=== PATIENT | male | born 1970 | race Caucasian/White ===

== ENCOUNTER 2018-07-01 09:45 | Emergency (ER) | payer MEDICAID ==
[2018-07-01] MEDS ORDERED: OLANZapine DISINTEGR 5 MG TAB PO ONE (10:29)
[2018-07-01 10:31] LABS: PLATELET COUNT 381 10^3/uL (150-400)
[2018-07-01] MEDS ORDERED: diphenhydrAMINE 25 MG CAP PO ONE (10:32)
--- NOTE | 2018-07-01 10:48 | EDPHY ---
General - History Smoking Status: Current every day smoker Time Seen by Provider: 07/01/18 10:00 Narrative: CLINICAL IMPRESSION: Delusions, paranoia ASSESSMENT/PLAN: A 48-year-old homeless male presents to the emergency department on an M1 hold by [employer] police after displaying paranoid behavior and delusions stating that someone was out to kill him and that people are apparently telling him to leave town. Patient denies SI/HI. Patient is paranoid on arrival, agitated, pacing the halls, and required 4 point restraints and both oral and IM Zyprexa as well as oral Ativan. Patient eventually calmed and restraints were removed. Patient was admitted to [facility] in May of 2018. He was medically cleared and is awaiting formal evaluation by TLC at time of sign-out to Dr. Cox at 5:00 p.m.. DIFFERENTIAL DX: Differential diagnosis including but not limited to hypoglycemia, infectious process, electrolyte abnormality, head injury and intoxicants, illicit drug intoxication, acute psychosis, acute delusional state. ED PROCEDURES: See lab and/or imaging results below ED COURSE: 10:40 a.m.. After my assessment, patient is anxious, agitated and pacing the halls. He will be given oral Zyprexa, lab results pending, TLC evaluation dependent on patient's lab evaluation and sobriety state. 10:50 a.m.: Patient agreed to take oral Zyprexa and then escalated to the point of needing restraints. I ordered 5 additional mg IM Zyprexa. 12:15 p.m.: ED RN informs me patient is still in 4 point restraints. Will add Ativan. 3:20 p.m.: Patient out of restraints, communicating with the ED RN, less agitated, medically cleared and awaiting eval. Will call TLC team. CHIEF COMPLAINT: M1 hold for psychosis HPI: 48-year-old male known to this emergency department with a past medical history of mental health illness and homelessness as well as drug abuse presents to the emergency department on an M1 hold by [employer] police after he apparently walked into the police department today stating that someone was going to kill him. Patient admits to doing methamphetamine last night and taking heroin today. He also reports abusing alcohol this morning and last night. He was admitted to [facility] in May of last year. Patient reports he is being told by people on the streets that he should get out of town because someone in [place] is after him. He states he is going to be shot today at. He is not reporting any suicidal or homicidal ideations. He will not tell me if he is hearing things or seeing people here. He denies IV drug abuse and states he "snorted methamphetamine". When asked if he is currently taking medications for mental health illness he will not answer. He is asking for a phone so he can call his parents. He is pacing the hallways and appears very anxious. PAST MEDICAL HISTORY: Past history of paranoia and delusions, abuses drugs See nurse/triage notes for additional history if applicable Pertinent Past Surgical History: Unable to obtain Family History: Unable to obtain Social History: Homeless, abuses alcohol, methamphetamine, heroin REVIEW OF SYSTEMS: All other systems negative Constitutional: No fever, appetite change. Eyes: No discharge, vision change ENT: No sore throat, congestion, ear pain. Cardiovascular: No chest pain, no palpitations. Respiratory: No cough, no shortness of breath. Gastrointestinal: No abdominal pain, no vomiting, diarrhea. Genitourinary: No hematuria, dysuria, flank pain Musculoskeletal: No back pain, joint swelling, joint pain, myalgias. Skin: No rashes, color change. PHYSICAL EXAM: General Appearance: Alert, oriented, appropriate, anxious appearing, pacing the hallways in the psych suite, appears paranoid, very slow to respond to questions, disheveled, non-toxic appearing, VSS, no hypoxia. HEENT: Oropharynx clear is no erythema or exudates, no tonsillar hypertrophy or asymmetry. Eyes: PERRLA, no acute vision change, nystagmus, swelling, discharge, pain or photosensitivity. Conjunctiva pink, no pallor or injection Neck: Supple, nontender, no lymphadenopathy, no midline pain, FROM, no meningismus. Respiratory: There are no retractions, lungs are clear to auscultation. Cardiac: Regular rate and rhythm, no murmurs or gallops. Gastrointestinal: Abdomen is soft, nontender, bowel sounds normal, no masses/ hernia, no rigidity, guarding or focal peritoneal findings. Neurological: Alert and oriented x 3 Skin: Warm, dry, no rashes, no nodules on palpation. No obvious signs of recent IV drug abuse, old scarring noted to bilateral forearms from cutting behavior Musculoskeletal: Extremities are symmetrical, full range of motion, no tenderness, deformity, swelling, or erythema. Psychiatric: Patient is oriented X 3, anxious, slightly agitated, pacing the room, asking for a telephone and stating that he does not want to stay here. MEDICAL DECISION MAKING: Patient was seen independently. Secondary supervising physician at time of evaluation was Dr. Costa, Dr. Cox. Diagnosis: Acute paranoia, delusional behavior. New, requires workup Summary: See Assessment and Plan for summary of ED visit Clinical lab tests: ordered / reviewed. Discussed patient with another provider: Dr Cox Patient Progress: Stable at time of signout. (Silver Mclean) Medical Decision Making: Care assumed at 2:[address] Costa with plan for psychiatric evaluation. 1830: Given additional oral Ativan and Zyprexa for increasing agitation after psychiatric evaluation is completed. 2300: signed out to Chuck. (Juan Cox) [address] Cox pending placement. 0700 patient signed out to Dr. Leblanc pending placement. I had no issues care for this patient during my shift. (Robert Woods) Discussion: 1200: Mental health has evaluated patient and recommends breaking the M1 hold. Patient has contracted for safety and will be discharged with outpatient resources. Return precautions discussed. (Gordon Leblanc) - Objective Vital Signs: Initial Vital Signs Temperature (C) 36.5 C 07/01/18 10:00 Heart Rate 95 07/01/18 10:00 Respiratory Rate 18 07/01/18 10:00 Blood Pressure 134/99 H 07/01/18 10:00 O2 Sat (%) 93 07/01/18 10:00 O2 Delivery Mode Room Air Allergies/Adverse Reactions: No Known Allergies Allergy (Unverified 07/01/18 09:53) Home Medications: Medication Instructions Recorded NK [No Known Home Meds] 07/01/18 Laboratory Results: Laboratory Results 07/01/18 10:00 07/01/18 10:00 Medications Given: Discontinued Medications Lorazepam (Ativan) 1 mg PO ONCE ONE Stop: 07/01/18 12:16 Last Admin: 07/01/18 12:38 Dose: 1 mg Lorazepam (Ativan) 1 mg PO EDNOW ONE Stop: 07/01/18 17:54 Last Admin: 07/01/18 18:24 Dose: 1 mg Olanzapine (Zyprexa Zydis) 5 mg PO EDNOW ONE Stop: 07/01/18 10:30 Last Admin: 07/01/18 10:39 Dose: 5 mg Olanzapine (Zyprexa Injection) 5 mg IM EDNOW ONE Stop: 07/01/18 10:54 Last Admin: 07/01/18 11:02 Dose: 5 mg Olanzapine (Olanzapine) 5 mg PO ONCE ONE Stop: 07/01/18 17:58 Last Admin: 07/01/18 18:25 Dose: 5 mg Departure - Departure Disposition: Home, Routine, Self-Care Clinical Impression: Acute psychosis Condition: Good Instructions: Psychotic Disorder (ED) Additional Instructions: Follow up with the resources provided. Return to the ED for any worsening of condition. Referrals: [facility],. [Clinic] - As per Instructions
[2018-07-01] MEDS ORDERED: OLANZapine 10 MG/2 ML VIAL ONE (10:53)
[2018-07-01] MEDS ORDERED: OLANZapine 10 MG/2 ML VIAL IM ONE (10:53)
[2018-07-01] MEDS ORDERED: LORazepam 1 MG TAB PO ONE ×2 (12:15→17:53)
[2018-07-01] MEDS ORDERED: OLANZapine 5 MG TAB PO ONE (17:57)
[2018-07-02] MEDS ORDERED: NICOTINE 14 MG/24 HR PATCH TD SCH (09:00)
[2018-07-02 12:07] VITALS: BP 114/80
--- NOTE | 2018-07-02 12:26 | ASMTLCPROG ---
Notes Note: Notes: Pt was seen for reassessment after spending the night in the ED. Per TLC report pt. was not admitted for inpt admission last night to allow him further time to detox from [facility] us. Per interview with pt. he presented as calm, cooperative and expressed insight about how his substance use had impacted his ability to function. Pt stated last night he had thought people were entering his room to cut up his body parts. Pt denies these thoughts at the time. Pt also denied thoughts of harm to self or others. Pt indicated a plan to f/u with obtaining his medications and described location where he could apple picker his meds. Per contact was informed pt. is an active client with [facility]. [facility] was provided with update and informed of pt's d/c from [facility] ED today. Per consultation with ED Physicain, Dr. Rob Leblanc, M1 hold was vacated. Date Signed: 07/02/2018 12:25 PM Electronically Signed By:Daphnie Byers
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
--- NOTE | 2018-07-02 13:01 | ASMTTCLDSP ---
[facility] Discharge Disposition Disposition: Answers: Discharge Disposition Notes: Notes: Pt was seen for reassessment after spending the night in the ED. Per TLC report pt. was not admitted for inpt admission last night to allow him further time to detox from [facility]. Per interview with pt. he presented as calm, cooperative and expressed insight about how his substance use had impacted his ability to function. Pt stated last night he had thought people were entering his room to cut up his body parts. Pt denies these thoughts at the time. Pt also denied thoughts of harm to self or others. Pt indicated a plan to f/u with obtaining his medications and described location where he could hand picker his meds. Per contact was informed pt. is an active client with [facility]. [facility] was provided with update and informed of pt's d/c from [facility] ED today. Per consultation with ED Physicain, Dr. Rob Leblanc, M1 hold was vacated. Discharge Concerns/Recommendations: Notes: Pt was discharged to the community with f/u continued at the [facility]. Date and time M1 hold 07/02/2018 11:59 AM vacated (time format is hh:mm): Hold initiated by: Answers: Police Date Signed: 07/02/2018 01:00 PM Electronically Signed By:Daphnie Byers
== END 2018-07-02 12:28 | disposition home or self-care (01) ==
PROC: GZ11ZZZ Psychological Tests, Personality and Behavioral (ICD-10-PCS; principal; 2018-07-01)
DX: F23 Brief psychotic disorder (principal); Z59.0 Homelessness
CPT/HCPCS: 80305; G0480